=== PATIENT | male | born 1955 | race Caucasian/White ===

== ENCOUNTER → 2017-01-18 | Day surgery (SDC) | payer BC, OTHER ==
[2017-01-06 09:48] VITALS: BMI 36.0
--- NOTE | 2017-01-06 10:19 | PAT Medication Instructions ---
Service Date Jan 06, 2017. Current Home Medication List Acetaminophen Tab (Tylenol), 650 MG PO PRN Amlodipine (Norvasc), 10 MG PO QAM Coenzyme Q10 (Ubidecarenone) (Coq10), 200 MG PO QAM Dapagliflozin-Metformin HCl (Xigduo Xr 5-1000 mg), 1 TAB PO BID Fish Oil (Garrett-3), 1,000 MG PO QAM Furosemide (Lasix), 20 MG PO QAM Gabapentin (Neurontin), 200 MG PO QPM Irbesartan-Hydrochlorothiazide (Avalide), 1 TAB PO QAM Metoprolol Succ (Toprol Xl) (Toprol-Xl ), 200 MG PO QAM Multivitamin (Multivitamin), 1 TAB PO QAM Medication Instructions For Your Scheduled Surgery - Hold the following medications as of 01/07/17:: Fish Oil (Garrett-3), 1,000 MG PO QAM Coenzyme Q10 (Ubidecarenone) (Coq10), 200 MG PO QAM - Hold the following medications 48 hours prior to surgery: Dapagliflozin-Metformin HCl (Xigduo Xr 5-1000 mg), 1 TAB PO BID - Hold the following medications the morning of surgery: Furosemide (Lasix), 20 MG PO QAM Multivitamin (Multivitamin), 1 TAB PO QAM Irbesartan-Hydrochlorothiazide (Avalide), 1 TAB PO QAM - Take the following medications the morning of surgery with a sip of water OTHERWISE NOTHING TO EAT OR DRINK AFTER MIDNIGHT: Metoprolol Succ (Toprol Xl) (Toprol-Xl ), 200 MG PO QAM Amlodipine (Norvasc), 10 MG PO QAM Acetaminophen Tab (Tylenol), 650 MG PO PRN (MAY TAKE IF NEEDED UP TO 4 HOURS PRIOR TO SURGERY) - Take the following medications as scheduled the night before surgery: Gabapentin (Neurontin), 200 MG PO QPM Acetaminophen Tab (Tylenol), 650 MG PO PRN If you have any questions please call us at [phone] or [phone] or [phone]
--- NOTE | 2017-01-06 10:51 | DIAGNOSTIC IMAGING REPORT ---
TWO VIEW CHEST CLINICAL HISTORY: Preoperative examination. FINDINGS: PA and lateral chest radiographs are obtained. No prior studies are available for comparison at the time of dictation. The heart is mildly enlarged. The mediastinal contour is within normal limits. The pulmonary vasculature is noncongested. Focal elevation of the right hemidiaphragm is noted. The lungs and pleural spaces are clear. There is no pneumothorax. The skeletal structures appear osteopenic. Degenerative change is noted throughout the thoracic spine. IMPRESSION: Mild cardiac enlargement with no active disease in the chest. Electronically signed by: Nathan Seaman M.D. 01/06/2017 10:50 AM Dictated Date/Time: 01/06/2017 10:49 AM
[2017-01-06 10:53] LABS: BASO % 0.9 %; BASO ABS # 0.06 K/uL (0-0.2); COMPLETE YES; EOS % 2.6 %; HEMATOCRIT 48.5 % (42-52); IG% 0.4 %; LYMPH % 32.5 %; LYMPH ABS # 2.26 K/uL (1.2-3.4); MEAN CELL VOLUME 90.7 fL (80-100); MEAN CORPUSCULAR HEMOGLOBIN 31.4 pg (25-34); MEAN CORPUSCULAR HGB CONC 34.6 g/dl (32-36); MEAN PLATELET VOLUME 11.2 fL (7.4-10.4); MONO % 8.5 %; NEUT % 55.1 %; PLATELET COUNT 145 K/uL (130-400); RED BLOOD COUNT 5.35 M/uL (4.7-6.1); WHITE BLOOD COUNT 6.95 K/uL (4.8-10.8)
[2017-01-06 10:54] LABS: URINE APPEARANCE CLEAR (CLEAR); URINE BILIRUBIN NEG (NEG); URINE COLOR YELLOW; URINE NITRITE NEG (NEG); URINE PH 6.5 (4.5-7.5); URINE SPECIFIC GRAVITY 1.022 (1.000-1.030); UROBILINOGEN NEG (NEG)
[2017-01-06 11:01] LABS: MANUAL MICROSCOPIC REQUIRED? NO; REVIEW REQ? NO
[2017-01-06 11:18] LABS: BUN/CREATININE RATIO 17.6 (10-20); CALCIUM 9.8 mg/dl (8.5-10.1); POTASSIUM 4.2 mmol/L (3.5-5.1)
[~2017-01-18] VITALS: Ht 175.3 cm; Wt 112.1 kg
[~2017-01-18] MED LIST: ACET325T96 PO; ACETAMINOPHEN 325 MG TAB PO PRN; AMLO-114 PO; ATROPINE SULFATE 0.1 MG/ML 5ML SYR IV PRN; BACITRACIN OINT 15 GM TUBE ONE; BUPIVACAINE 0.5 % 5 MG/1 ML MPF 30ML VIAL ONE; CEFAZOLIN 3000 MG/65 ML D5W IV SCH; COEN1CAP7 PO; DAPA1TAB5 PO; DEXAMETHASONE SOD INJ 4 MG/ML VIAL ONE; EpHEDrine SULFATE INJ 50 MG/ML AMP IV PRN; EpHEDrine SULFATE INJ 50 MG/ML AMP ONE; FENTANYL CITRATE INJ 50 MCG/1 ML 2 ML VIAL ONE; FLUMAZENIL 0.1 MG/1 ML 10 ML VIAL IV PRN; FURO-85 PO; GABA-112 PO; HYDR-5688 PO; HYDROCODONE/ACETAMOPHEN 5/325MG TAB PO PRN; HYDROmorphone INJ 1 MG/ML SYR IV PRN; IRBE-43 PO; LABETALOL HCL IV 5 MG/ML 20ML IV PRN; LACTATED RINGER'S 1000ML 1,000 ML IV SCH; LIDOCAINE HCL 2% 2 ML VIAL (20MG/ML) ONE; METO1TAB69 PO; MIDAZOLAM HCL 1 MG/ML 2ML VIAL ONE; MULT-506 PO; NALOXONE HCL 0.4 MG/1 ML VIAL/CARP IV PRN; OMEG10007 PO; ONDANSETRON INJ 2 MG/ML 2 ML VIAL IV PRN; ONDANSETRON INJ 2 MG/ML 2 ML VIAL ONE; PHENYLEPHRINE HCL INJ 10 MG/ML VIAL ONE; PROMETHAZINE HCL INJ 12.5 MG in SODIUM CHLORIDE 0.9% 50ML 50 ML IV PRN; PROPOFOL IV EMULSION 10 MG/ML 20 ML VIAL IV ONE; SODIUM CHLORIDE 0.9% 1000ML 1,000 ML IV SCH; WATER, STERILE FOR INJ 10 ML VIAL ONE
[2017-01-18 05:53] VITALS: BP 153/91; PULSE 71; TEMP 36.7; O2SAT 98; Ht 175.3 cm; Wt 112.1 kg
--- NOTE | 2017-01-18 07:12 | History & Physical Bridge Note ---
H&P Re-Evaluation Bridge Note: I have examined the patient, reviewed the History & Physical and in the interval since the performance of the History & Physical I have noted the following changes of clinical significance: No changes noted
--- NOTE | 2017-01-18 08:25 | [facility] Post Operative Brief Note ---
Immediate Operative Summary Operative Date Jan 18, 2017. Pre-Operative Diagnosis Left hydrocele Post-Operative Diagnosis Same as preoperative diagnosis Procedure(s) Performed Left Hydrocelectomy Surgeon Dr. Johnnie Nunes [employer] Consultant Surgeon(s) None Estimated Blood Loss 10 mL Findings Large, simple left hydrocele. Scrotal karthik. Specimens Permanent specimens A: Left hydrocele sac Drains none Anesthesia gen Complication(s) None Disposition Recovery Room / PACU (stable)
--- NOTE | 2017-01-18 08:31 | Discharge Instructions ---
Discharge Instructions Admission Reason for Admission: Left Hydrocele Discharge Discharge Diagnosis / Problem: left hydrocele Discharge Goals Goal(s): Decrease discomfort, Improve function, Increase independence, Improve disease control Activity Recommendations Activity Limitations: resume your previous activity Lifting Limitations: no more than 25 pounds, until after follow-up appointment Exercise/Sports Limitations: gradually increase as tolerated May Resume Sexual Activity: when tolerated Shower/Bathe: no limitations Driving or Machine Use: no limitations (as long as you are off of pain meds) . Instructions / Follow-Up Instructions / Follow-Up You do not need to come to Dr. Nunes's office this , but please keep your appointment for February 04 at 1:10PM in [place]. Discharge Diet Recommended Diet: Regular Diet Procedures Procedures Performed: Left Hydrocelectomy Pending Studies Studies pending at discharge: no Medical Emergencies . Who to Call and When: Medical Emergencies: If at any time you feel your situation is an emergency, please call 911 immediately. . Non-Emergent Contact Non-Emergency issues call your: Urologist Call Non-Emergent contact if: you have a fever, temperature is above 101.5, your pain is worsening, wound has increased redness . . "Provider Documentation" section prepared by Dexter Read. VTE Core Measure Inpt VTE Proph given/why not?: Treatment not indicated [place] Drug Monitoring Program Search Results: patient reviewed within database, no issues identified
[2017-01-18 09:10] VITALS: BP 124/72; PULSE 69; TEMP 36.6; O2SAT 93
[2017-01-18 09:40] VITALS: BP 124/71; PULSE 69; TEMP 36.5; O2SAT 95
--- NOTE | 2017-01-18 10:00 | Anesthesiology Progress Note ---
Anesthesia Post Op Note Date & Time Jan 18, 2017 at 09:59 Vital Signs Pain Intensity: 0 Vital Signs Past 12 Hours Date Time Temp Pulse Resp B/P Pulse Ox O2 Delivery O2 Flow Rate FiO2 01/18/17 09:40 36.5 69 16 124/71 95 Room Air 01/18/17 09:10 36.6 69 16 124/72 93 Room Air 01/18/17 09:00 36.6 74 12 125/78 96 Room Air 01/18/17 08:50 74 10 123/82 96 Room Air 01/18/17 08:40 76 15 129/85 100 Mask 10 01/18/17 08:30 76 16 127/83 100 Mask 10 01/18/17 08:22 37.2 76 16 133/79 99 Mask 10 01/18/17 05:53 36.7 71 18 153/91 98 Room Air Notes Mental Status: alert / awake / arousable, participated in evaluation Pt Amnestic to Procedure: Yes Nausea / Vomiting: adequately controlled Pain: adequately controlled Airway Patency, RR, SpO2: stable & adequate BP & HR: stable & adequate Hydration State: stable & adequate Anesthetic Complications: no major complications apparent
[2017-01-18 10:10] VITALS: BP 126/73; PULSE 64; TEMP 36.6; O2SAT 94
--- NOTE | 2017-01-18 10:53 | OPERATIVE REPORT ---
DATE OF OPERATION: 01/18/2017 PREOPERATIVE DIAGNOSIS: Left hydrocele. POSTOPERATIVE DIAGNOSIS: Left hydrocele. PROCEDURE PERFORMED: Left scrotal hydrocelectomy. ANESTHESIA: General. ESTIMATED BLOOD LOSS: 10 mL. URINE OUTPUT: Not recorded. SPECIMENS: Left hydrocele sac for routine pathology. DESCRIPTION OF THE PROCEDURE: Kenroy Beauchamp was identified in the preoperative holding area. Appropriate informed consents were reviewed and completed and the patient was transported to the operating suite. Upon arrival, he received appropriate preoperative antibiotics in the form of Ancef. Adequate general anesthesia was achieved and the patient was placed in supine position where he was sterilely prepped and draped in a standard fashion. I began the case by making a midline raphe incision of approximately 5 cm. I carried this through the superficial tissues including dartos fascia until I was able to deliver the hydrocele through the incision. I then skeletonized the tissue down to the simple tunica vaginalis before opening the tunica vaginalis and draining approximately 400-500 mL of clear straw-colored fluid. I then made a longitudinal incision in the tunica vaginalis exposing the inner aspects of the testis. I inspected the epididymis and the testis itself, and then I excised the redundant sac from both the left and right halves of the area that I open. After confirming excellent hemostasis, I oversewed the edge utilizing a 2-0 Vicryl stitch in running baseball whipstitch fashion. I again confirmed hemostasis before delivering the testis back into the scrotum in its havasupai position and lie. I reapproximated dartos fascia utilizing 2-0 chromic stitch in a running fashion, followed by closure of the skin of vertical mattress stitches to reapproximate the skin edge. No drain was left. The patient received some local anesthesia in the form of a cord block utilizing 0.5% Marcaine. The patient was subsequently reversed from anesthesia and taken to the PACU in stable condition. I attest to the content of the Intraoperative Record and any orders documented therein. Any exceptions are noted below. KELSIE
== END | disposition home or self-care (01) ==
LOC: C.ACU 05:26
PROVIDERS: ATTEND Urology
DX: N43.3 Hydrocele, unspecified (principal); I10 Essential (primary) hypertension; E11.9 Type 2 diabetes mellitus without complications; Z98.890 Other specified postprocedural states; Z68.36 Body mass index [BMI] 36.0-36.9, adult; E66.9 Obesity, unspecified; Z83.3 Family history of diabetes mellitus; Z80.51 Family history of malignant neoplasm of kidney

== ENCOUNTER → 2018-01-27 | Outpatient (CLI) | payer BC ==
[~2018-01-27] MED LIST changes: +ACET-1693 PO; -ACET325T96 PO; -ACETAMINOPHEN 325 MG TAB PO PRN; -ATROPINE SULFATE 0.1 MG/ML 5ML SYR IV PRN; -BACITRACIN OINT 15 GM TUBE ONE; -BUPIVACAINE 0.5 % 5 MG/1 ML MPF 30ML VIAL ONE; -CEFAZOLIN 3000 MG/65 ML D5W IV SCH; -DEXAMETHASONE SOD INJ 4 MG/ML VIAL ONE; -EpHEDrine SULFATE INJ 50 MG/ML AMP IV PRN; -EpHEDrine SULFATE INJ 50 MG/ML AMP ONE; -FENTANYL CITRATE INJ 50 MCG/1 ML 2 ML VIAL ONE; -FLUMAZENIL 0.1 MG/1 ML 10 ML VIAL IV PRN; -HYDR-5688 PO; -HYDROCODONE/ACETAMOPHEN 5/325MG TAB PO PRN; -HYDROmorphone INJ 1 MG/ML SYR IV PRN; -LABETALOL HCL IV 5 MG/ML 20ML IV PRN; -LACTATED RINGER'S 1000ML 1,000 ML IV SCH; -LIDOCAINE HCL 2% 2 ML VIAL (20MG/ML) ONE; +METO100T44 PO; -METO1TAB69 PO; -MIDAZOLAM HCL 1 MG/ML 2ML VIAL ONE; -NALOXONE HCL 0.4 MG/1 ML VIAL/CARP IV PRN; -ONDANSETRON INJ 2 MG/ML 2 ML VIAL IV PRN; -ONDANSETRON INJ 2 MG/ML 2 ML VIAL ONE; -PHENYLEPHRINE HCL INJ 10 MG/ML VIAL ONE; -PROMETHAZINE HCL INJ 12.5 MG in SODIUM CHLORIDE 0.9% 50ML 50 ML IV PRN; -PROPOFOL IV EMULSION 10 MG/ML 20 ML VIAL IV ONE; -SODIUM CHLORIDE 0.9% 1000ML 1,000 ML IV SCH; -WATER, STERILE FOR INJ 10 ML VIAL ONE
== END | disposition home or self-care (01) ==
LOC: C.PATHSPEC 16:51
PROVIDERS: ATTEND Physician Assistant
DX: D23.9 Other benign neoplasm of skin, unspecified (principal)